=== PATIENT | male | born 1980 | race Caucasian/White ===

== ENCOUNTER 2021-11-02 00:20 | Day surgery (SDC) | payer BC, SELFPAY ==
[2021-10-17 13:05] VITALS: BMI 28.5
--- NOTE | 2021-11-01 13:59 | PM.HPGS ---
History of Present Illness History of Present Illness Consent: Risks, benefits, and alternatives have been discussed and questions answered. Patient agrees to proceed with procedure. Chief complaint: hx of colon polyps, family hx of colon ca,neoplasm Narrative: Boby Brand is a 41 year old male referred for colon cancer screening. He has a family history of colon cancer. He had a couple of polyps removed 4 years ago, 1 of which was an advanced adenoma. Review of Systems Review of Systems: All systems reviewed & are unremarkable except as noted in HPI and below PMFSH Social History Social History Smoking status: Never smoker Alcohol intake: current Alcohol use details: 6 pack beer per week Substance use: never Substance use type: does not use Living arrangements: with family Spiritual care concerns: No Meds Home Medications and Allergies Home Medications Medication Instructions Recorded Confirmed Type dextroamphetamine-amphetamine 20 20 mg PO DAILY 10/17/21 10/17/21 History mg tablet valacyclovir 1 gram tablet 2,000 mg PO DAILY PRN herpes 10/17/21 10/17/21 History flareup Allergies Allergy/AdvReac Type Severity Reaction Status Date / Time No Known Allergies Allergy Verified 11/02/21 06:21 Exam Resp: Auscultation: clear to auscultation bilaterally Cardio: Rate: regular rate Rhythm: regular rhythm GI: GI Palp: Yes Soft to palpation and No Tenderness to palpation present (GI) Assessment and Plan Assessment and plan (1) Colon cancer screening: Code(s): Z12.11 - Encounter for screening for malignant neoplasm of colon Status: Acute Assessment and Plan: Colonoscopy with possible biopsy or polypectomy or cautery or injection of substances.
[2021-11-02 06:22] VITALS: BP 132/93; PULSE 93; RESP 17; TEMP 36.4; O2SAT 98
[2021-11-02] MEDS: LACTATED RINGERS 1,000 ML 150 ML IV CONT (06:30)
--- NOTE | 2021-11-02 07:19 | WPDANESEPPF ---
Anes - Initial Pre Proc Eval Procedure: Operation Date: 11/02/21 07:30 Proposed Procedures p Screening Colonoscopy - Harjinder Evans MD Date/Time: 11/02/21 07:19 Surgeon: Harjinder Evans MD Pre Op Diagnosis: hx of colon polyps, family hx of colon ca,neoplasm Patient Data Age: 41 Gender: M Height: 1.8 m Weight: 96.3 kg Last Vital Signs Temp 97.6 F 11/02/21 06:22 Pulse 93 11/02/21 06:22 Resp 17 11/02/21 06:22 BP 132/93 H 11/02/21 06:22 Pulse Ox 98 11/02/21 06:22 O2 Del Method Room Air 11/02/21 06:22 Allergies Allergy/AdvReac Type Severity Reaction Status Date / Time No Known Allergies Allergy Verified 11/02/21 06:21 Home Medications Medication Instructions Recorded Confirmed Type dextroamphetamine-amphetamine 20 20 mg PO DAILY 10/17/21 10/17/21 History mg tablet valacyclovir 1 gram tablet 2,000 mg PO DAILY PRN herpes 10/17/21 10/17/21 History flareup Patient hx anesthesia problems: none Family hx anesthesia problems: none Results Review: All pre-operative results and documents have been reviewed as part of the pre-operative evaluation. REPLACED BY [facility] Past Medical History Medical History (Updated 11/02/21 @ 07:19 by Jeffrey Smith MD) ADHD (attention deficit hyperactivity disorder) Social History Social History Smoking status: Never smoker Alcohol intake: current Alcohol use details: 6 pack beer per week Substance use: never Substance use type: does not use Living arrangements: with family Spiritual care concerns: No Anes - Eval Final PreProcedure Day of Procedure 11/02/21 07:19 Patient weight: overweight Heart: regular rate and rhythm Lungs: clear to auscultation Airway: Mallampati scale class II Neurological: alert and oriented Last oral intake: >/= 8 hours ASA classification: II Emergent: no Anesthetic plan: proceed Anesthesia type and monitoring: general GIVS and standard monitoring Results Review: All pre-operative results and documents have been reviewed as part of the pre-operative evaluation. Informed Consent: The patient's anesthetic plan and its attendant risks and benefits were discussed with the patient/family/POA. Questions were solicited and answers provided to the satisfaction of the patient/family/POA.
[2021-11-02 07:43] VITALS: BP 137/98; PULSE 83; RESP 16; O2SAT 98
[2021-11-02 07:53] VITALS: BP 131/96; PULSE 81; RESP 22; O2SAT 99
[2021-11-02 08:03] VITALS: BP 130/94; PULSE 76; RESP 15; O2SAT 100
== END 2021-11-02 08:09 | disposition home or self-care (01) ==
PROVIDERS: PCP Family Medicine; Visit Provider Internal Medicine Gastroenterology
PROC: 0DJD8ZZ Inspection of Lower Intestinal Tract, Via Natural or Artificial Opening Endoscopic (ICD-10-PCS; CPT 45378; principal; 2021-11-02 07:30)
DX: Z12.11 Encounter for screening for malignant neoplasm of colon (principal); Z80.0 Family history of malignant neoplasm of digestive organs; Z86.010 Personal history of colon polyps; F90.9 Attention-deficit hyperactivity disorder, unspecified type
CPT/HCPCS: 45378; J2704; J7120

== ENCOUNTER 2023-11-26 08:37 | Outpatient (CLI) | payer OTHER, SELFPAY ==
--- NOTE | ~2023-11-26 | MR_ITS ---
MRI of the right shoulder Technique: Axial proton-density fat-sat images, coronal proton density fat-sat and T2 fat-sat images, and sagittal T1-weighted and T2 fat-sat images were acquired. Clinical History: Superior glenoid labrum lesion Findings: There is minimal AC joint degenerative change. No subacromial spur. Coracoclavicular, corac oacromial, and coracohumeral ligaments are intact. There is mild tendinosis of the distal supraspinatus tendon. No partial or full-thickness tear of the supraspinatus or infraspinatus tendon present. Subscapularis tendon is intact, with mild tendinosis. Tendon of long head of the biceps is intact. No labral tear identified. Inferior glenohumeral ligament intact. No degenerative change or effusion of the glenohumeral joint. No fluid distention of the subacromial/subdeltoid bursa. No muscle atrophy or edema. Impression: No labral tear evident. Mild rotator cuff tendinosis, as above. Reviewed, dictated and finalized at [facility]. Impression: No labral tear evident. Mild rotator cuff tendinosis, as above.
== END 2023-11-26 08:38 | disposition home or self-care (01) ==
PROVIDERS: PCP Internal Medicine; Visit Provider Orthopaedic Surgery
DX: S43.431A Superior glenoid labrum lesion of right shoulder, initial encounter (principal); X58.XXXA Exposure to other specified factors, initial encounter
CPT/HCPCS: 73221

== ENCOUNTER 2024-08-26 09:35 | Outpatient (CLI) | payer BC, SELFPAY ==
--- NOTE | ~2024-08-26 | CT_ITS ---
CT abdomen pelvis w con Ordering provider: Michele Michelle, History: 44 years Male with . Gastro-esophageal reflux disease without esophagitis . Comparison: None. Technique: CT abdomen and pelvis with IV and without oral contrast. Automated exposure control and it erative reconstruction technique were employed. The dose-length product was 997.29 mGy-cm. 100 mL Omn ipaque 350 was given IV. Findings: VISUALIZED LOWER CHEST: Normal. UPPER ABDOMINAL ORGANS: Liver: Normal. Gallbladder: Not demonstrated most likely surgically removed. Spleen: Normal. Stomach/duodenum: Normal. Pancreas: Normal. Adrenals: Normal. Kidneys: Possible tiny stone in the right kidney upper pole. PELVIC ORGANS: The bladder is underfilled with thickened wall. BOWEL AND MESENTERY: Colon: No evidence of diverticulitis. Normal appendix. Small Bowel: Normal. No obstruction. Peritoneum/mesentery: No free air or free fluid. No mesenteric lymphadenopathy. RETROPERITONEUM: Normal aorta. No retroperitoneal lymphadenopathy. MUSCULOSKELETAL: Superficial soft tissues: The superficial soft tissues are normal. Bones: Normal spine. IMPRESSION: 1. No evidence of appendicitis, diverticulitis or intestinal obstruction. Reviewed, dictated and finalized at location [facility].
== END 2024-08-26 09:36 | disposition home or self-care (01) ==
LOC: MICIMG 09:35
PROVIDERS: PCP Internal Medicine; Visit Provider Internal Medicine
DX: K21.9 Gastro-esophageal reflux disease without esophagitis (principal)
CPT/HCPCS: 74177; Q9967